=== PATIENT | male | born 1930 | race African-American/Black ===

== ENCOUNTER 2018-02-06 08:19 | Outpatient (CLI) | payer MEDICARE, OTHER | END 2018-02-06 08:20 | disposition home or self-care (01) | LOC: BICULT 08:19 | PROVIDERS: ATTEND Family Medicine | DX: R10.9 Unspecified abdominal pain (principal); N28.1 Cyst of kidney, acquired; N40.0 Benign prostatic hyperplasia without lower urinary tract symptoms | CPT/HCPCS: 76770 ==